=== PATIENT | female | born 1995 | race American Indian/Alaskan Native ===

== ENCOUNTER 2017-02-28 14:39 | Inpatient (IN) | payer BC ==
[2017-02-28] MEDS ORDERED: NACL 0.9% 1000 ML 1,000 ML ONE (14:54)
[2017-02-28] MEDS ORDERED: D50W (25GM) IV ONE ×2 (14:56→16:00)
[2017-02-28] MEDS ORDERED: NACL 0.9% 1000 ML 1,000 ML IV ONE (15:01)
[2017-02-28 15:19] LABS: Basophils % (Auto) 0.9 % (0.0-1.8); Eosinophils % (Auto) 0.2 % (0.0-4.3); Hematocrit 38.3 % (30.3-42.9); Hemoglobin 12.4 gm/dl (10.1-14.3); Mean Corpuscular HGB Conc 33 % (30-34); Mean Corpuscular Hemoglobin 31 pg (28-32); Mean Corpuscular Volume 96 fl (79-97); Platelet Count 287 K/mm3 (140-440); Red Blood Count 3.98 M/mm3 (3.65-5.03); Red Cell Distribution Width 12.4 % (13.2-15.2); White Blood Count 7.7 K/mm3 (4.5-11.0)
[2017-02-28 15:34] LABS: Urine Drugs of Abuse Note Disclamer
[2017-02-28 15:39] LABS: Alanine Aminotransferase 12 units/L (7-56); Albumin 4.3 g/dL (3.9-5); Albumin/Globulin Ratio 1.7 %; Alkaline Phosphatase 37 units/L (35-129); Anion Gap 25 mmol/L; BUN/Creatinine Ratio 14.28; Blood Urea Nitrogen 10 mg/dL (7-17); Calcium 8.7 mg/dL (8.4-10.2); Carbon Dioxide 20 mmol/L (22-30); Chloride 98.3 mmol/L (98-107); Glucose 315 mg/dL (65-100); Potassium 3.2 mmol/L (3.6-5.0); Sodium 140 mmol/L (137-145); Total Protein 6.9 g/dL (6.3-8.2)
[2017-02-28 15:50] LABS: Bilirubin,Urine NEG (Negative); Blood,Urine LG (Negative); Ketones,Urine 20 mg/dL (Negative); Leukocyte Esterase,Urine NEG (Negative); Mucus,Urine 1+ /HPF; Nitrite,Urine NEG (Negative); Protein,Urine <15 mg/dL mg/dL (Negative); Urobilinogen,Urine < 2.0 mg/dL (<2.0)
--- NOTE | 2017-02-28 17:01 | Emergency Department Report ---
HPI - General Chief Complaint: Hypoglycemia Time Seen by Provider: 02/28/17 16:50 - HPI HPI: Room 4 The patient is a 21-year-old female presenting with chief complaint of hypoglycemia. Patient has no known medical problems and does not take medication. Patient states today she began to feel short of breath and lightheaded so she went to an urgent care facility where an Accu-Chek revealed her glucose was 40. Patient states she again began to feel nauseous and actually vomited her glucose was rechecked and remained at 40. The patient was subsequently sent to the ED. Here in the ED her initial glucose was found to be 33. Patient was administered D50 and given a meal. Patient states she feels improved and only complains of feeling sleepy. Patient denies any previous episodes of the same. Location: [see above] Duration: One day Quality: Numbness, shortness of breath Severity: Moderate Modifying factors: [see above] Context: [see above] Mode of transportation: [not driving] ED Past Medical Hx - Past Medical History Previous Medical History?: No - Surgical History Past Surgical History?: No - Family History Family history: no significant - Social History Smoking Status: Current Every Day Smoker Substance Use Type: None (denies illicit drug use) - Medications Home Medications: Home Medications Medication Instructions Recorded Confirmed Last Taken Type No Known Home Medications [No 02/28/17 02/28/17 Unknown History Reported Home Medications] ED Review of Systems ROS: Stated complaint: LBS Other details as noted in HPI Comment: All other systems reviewed and negative Constitutional: denies: chills, fever Eyes: denies: eye pain, eye discharge, vision change ENT: denies: ear pain, throat pain Respiratory: shortness of breath Cardiovascular: as per HPI Endocrine: no symptoms reported Gastrointestinal: nausea, vomiting Genitourinary: denies: urgency, dysuria, discharge Musculoskeletal: denies: back pain, joint swelling, arthralgia Skin: denies: rash, lesions Neurological: denies: headache, weakness, paresthesias Psychiatric: denies: anxiety, depression Hematological/Lymphatic: denies: easy bleeding, easy bruising Physical Exam - Physical Exam Vital Signs: Vital Signs 02/28/17 02/28/17 14:47 15:20 Temperature 98 F Pulse Rate 77 78 Respiratory 18 18 Rate Blood Pressure 106/71 Blood Pressure 109/68 [Right] O2 Sat by Pulse 100 98 Oximetry Physical Exam: GENERAL: The patient is well-developed well-nourished female lying on stretcher not appearing to be in acute distress. [] HEENT: Normocephalic. Atraumatic. Extraocular motions are intact. Patient has moist mucous membranes. NECK: Supple. Trachea midline CHEST/LUNGS: Clear to auscultation. There is no respiratory distress noted. HEART/CARDIOVASCULAR: Regular. There is no tachycardia. There is no gallop rub or murmur. ABDOMEN: Abdomen is soft, nontender. Patient has normal bowel sounds. There is no abdominal distention. SKIN: There is no rash. There is no edema. There is no diaphoresis. NEURO: The patient is awake, alert, and oriented. The patient is cooperative. The patient has normal speech MUSCULOSKELETAL: There is no evidence of acute injury. ED Course Vital Signs 02/28/17 02/28/17 14:47 15:20 Temperature 98 F Pulse Rate 77 78 Respiratory 18 18 Rate Blood Pressure 106/71 Blood Pressure 109/68 [Right] O2 Sat by Pulse 100 98 Oximetry ED Medical Decision Making - Lab Data Result diagrams: 02/28/17 15:02 02/28/17 15:02 Laboratory Tests 02/28/17 02/28/17 02/28/17 14:47 15:02 15:02 WBC 7.7 RBC 3.98 Hgb 12.4 Hct 38.3 MCV 96 MCH 31 MCHC 33 RDW 12.4 L Plt Count 287 Lymph % (Auto) 20.4 [place] % (Auto) 3.6 Eos % (Auto) 0.2 Baso % (Auto) 0.9 Lymph # 1.6 [place] # 0.3 Eos # 0.0 Baso # 0.1 Seg Neutrophils % 74.9 H Seg Neutrophils # 5.8 Sodium 140 Potassium 3.2 L Chloride 98.3 Carbon Dioxide 20 L Anion Gap 25 BUN 10 Creatinine 0.7 Estimated GFR > 60 BUN/Creatinine Ratio 14.28 Glucose 315 H POC Glucose < 40 L Calcium 8.7 Total Bilirubin 0.60 AST 18 ALT 12 Alkaline Phosphatase 37 Troponin T < 0.010 Total Protein 6.9 Albumin 4.3 Albumin/Globulin Ratio 1.7 TSH Free T4 Urine Color Urine Turbidity Urine pH Ur Specific [place] Urine Protein Urine Glucose (UA) Urine Ketones Urine Blood Urine Nitrite Urine Bilirubin Urine Urobilinogen Ur Leukocyte Esterase Urine WBC (Auto) Urine RBC (Auto) U Epithel Cells (Auto) Urine Mucus Urine HCG, Qual Urine Opiates Screen Urine Methadone Screen Ur Barbiturates Screen Ur Phencyclidine Scrn Ur Amphetamines Screen U Benzodiazepines Scrn Urine Cocaine Screen U Marijuana (THC) Screen Drugs of Abuse Note 02/28/17 02/28/17 02/28/17 15:02 15:28 15:28 WBC RBC Hgb Hct MCV MCH MCHC RDW Plt Count Lymph % (Auto) [place] % (Auto) Eos % (Auto) Baso % (Auto) Lymph # [place] # Eos # Baso # Seg Neutrophils % Seg Neutrophils # Sodium Potassium Chloride Carbon Dioxide Anion Gap BUN Creatinine Estimated GFR BUN/Creatinine Ratio Glucose POC Glucose Calcium Total Bilirubin AST ALT Alkaline Phosphatase Troponin T Total Protein Albumin Albumin/Globulin Ratio TSH 0.641 Free T4 1.34 Urine Color Yellow Urine Turbidity Clear Urine pH 6.0 Ur Specific [place] 1.018 Urine Protein <15 mg/dl Urine Glucose (UA) >=500 Urine Ketones 20 Urine Blood Lg Urine Nitrite Neg Urine Bilirubin Neg Urine Urobilinogen < 2.0 Ur Leukocyte Esterase Neg Urine WBC (Auto) 1.0 Urine RBC (Auto) 4.0 U Epithel Cells (Auto) 2.0 Urine Mucus 1+ Urine HCG, Qual Negative Urine Opiates Screen Presumptive negative Urine Methadone Screen Presumptive negative Ur Barbiturates Screen Presumptive negative Ur Phencyclidine Scrn Presumptive negative Ur Amphetamines Screen Presumptive negative U Benzodiazepines Scrn Presumptive negative Urine Cocaine Screen Presumptive negative U Marijuana (THC) Screen Presumptive negative Drugs of Abuse Note Disclamer 02/28/17 15:49 WBC RBC Hgb Hct MCV MCH MCHC RDW Plt Count Lymph % (Auto) [place] % (Auto) Eos % (Auto) Baso % (Auto) Lymph # [place] # Eos # Baso # Seg Neutrophils % Seg Neutrophils # Sodium Potassium Chloride Carbon Dioxide Anion Gap BUN Creatinine Estimated GFR BUN/Creatinine Ratio Glucose POC Glucose 165 H Calcium Total Bilirubin AST ALT Alkaline Phosphatase Troponin T Total Protein Albumin Albumin/Globulin Ratio TSH Free T4 Urine Color Urine Turbidity Urine pH Ur Specific [place] Urine Protein Urine Glucose (UA) Urine Ketones Urine Blood Urine Nitrite Urine Bilirubin Urine Urobilinogen Ur Leukocyte Esterase Urine WBC (Auto) Urine RBC (Auto) U Epithel Cells (Auto) Urine Mucus Urine HCG, Qual Urine Opiates Screen Urine Methadone Screen Ur Barbiturates Screen Ur Phencyclidine Scrn Ur Amphetamines Screen U Benzodiazepines Scrn Urine Cocaine Screen U Marijuana (THC) Screen Drugs of Abuse Note - EKG Data -: EKG Interpreted by Me EKG shows normal: sinus rhythm Rate: normal - EKG Data When compared to previous EKG there are: previous EKG unavailable Interpretation: nonspecific ST-T wave loulou (T-wave inversions in leads 3 and aVF) - Differential Diagnosis hypoglycemia Critical care attestation.: If time is entered above; I have spent that time in minutes in the direct care of this critically ill patient, excluding procedure time. ED Disposition Clinical Impression: Hypoglycemia, Hypokalemia Disposition: OP ADMITTED IP TO THIS HOSP Is pt being admited?: Yes Does the pt Need Aspirin: No Condition: Fair Referrals: PRIMARY CARE, [Primary Care Provider] - 3-5 Days Time of Disposition: 17:01 (hospitalist paged)
[2017-02-28] MEDS ORDERED: ZOFRAN IV PRN (17:02)
[2017-02-28] MEDS ORDERED: K-DUR PO ONE (17:02)
--- NOTE | 2017-02-28 20:20 | Event Note ---
Date: 02/28/17 See H/p in reports Persistent Hypoglycemia Hypokalemia
[2017-02-28] MEDS: D5W 1,000 ML IV SCH (22:17)
[2017-03-01 08:59] VITALS: BP 103/62
--- NOTE | 2017-03-01 09:36 | Progress Note ---
Hospitalist Physical - Constitutional Vitals: Temp Pulse Resp BP Pulse Ox 99.6 F 60 16 103/62 99 03/01/17 08:40 03/01/17 08:40 03/01/17 08:40 03/01/17 08:40 03/01/17 08:40 Results - Labs CBC & Chem 7: 02/28/17 15:02 02/28/17 15:02 Labs: Laboratory Last Values WBC 7.7 K/mm3 (4.5-11.0) 02/28/17 15:02 RBC 3.98 M/mm3 (3.65-5.03) 02/28/17 15:02 Hgb 12.4 gm/dl (10.1-14.3) 02/28/17 15:02 Hct 38.3 % (30.3-42.9) 02/28/17 15:02 MCV 96 fl (79-97) 02/28/17 15:02 MCH 31 pg (28-32) 02/28/17 15:02 MCHC 33 % (30-34) 02/28/17 15:02 RDW 12.4 % (13.2-15.2) L 02/28/17 15:02 Plt Count 287 K/mm3 (140-440) 02/28/17 15:02 Lymph % (Auto) 20.4 % (13.4-35.0) 02/28/17 15:02 [place] % (Auto) 3.6 % (0.0-7.3) 02/28/17 15:02 Eos % (Auto) 0.2 % (0.0-4.3) 02/28/17 15:02 Baso % (Auto) 0.9 % (0.0-1.8) 02/28/17 15:02 Lymph # 1.6 K/mm3 (1.2-5.4) 02/28/17 15:02 [place] # 0.3 K/mm3 (0.0-0.8) 02/28/17 15:02 Eos # 0.0 K/mm3 (0.0-0.4) 02/28/17 15:02 Baso # 0.1 K/mm3 (0.0-0.1) 02/28/17 15:02 Seg Neutrophils % 74.9 % (40.0-70.0) H 02/28/17 15:02 Seg Neutrophils # 5.8 K/mm3 (1.8-7.7) 02/28/17 15:02 Sodium 140 mmol/L (137-145) 02/28/17 15:02 Potassium 3.2 mmol/L (3.6-5.0) L 02/28/17 15:02 Chloride 98.3 mmol/L (98-107) 02/28/17 15:02 Carbon Dioxide 20 mmol/L (22-30) L 02/28/17 15:02 Anion Gap 25 mmol/L 02/28/17 15:02 BUN 10 mg/dL (7-17) 02/28/17 15:02 Creatinine 0.7 mg/dL (0.7-1.2) 02/28/17 15:02 Estimated GFR > 60 ml/min 02/28/17 15:02 BUN/Creatinine Ratio 14.28 % 02/28/17 15:02 Glucose 315 mg/dL (65-100) H 02/28/17 15:02 POC Glucose 74 (70-105) 03/01/17 06:00 Hemoglobin A1c 5.3 % (4-6) 03/01/17 05:59 Calcium 8.7 mg/dL (8.4-10.2) 02/28/17 15:02 Total Bilirubin 0.60 mg/dL (0.1-1.2) 02/28/17 15:02 AST 18 units/L (5-40) 02/28/17 15:02 ALT 12 units/L (7-56) 02/28/17 15:02 Alkaline Phosphatase 37 units/L (35-129) 02/28/17 15:02 Troponin T < 0.010 ng/mL (0.00-0.029) 02/28/17 15:02 Total Protein 6.9 g/dL (6.3-8.2) 02/28/17 15:02 Albumin 4.3 g/dL (3.9-5) 02/28/17 15:02 Albumin/Globulin Ratio 1.7 % 02/28/17 15:02 TSH 0.641 mlU/mL (0.270-4.200) 02/28/17 15:02 Free T4 1.34 ng/dL (0.76-1.46) 02/28/17 15:02 Urine Color Yellow (Yellow) 02/28/17 15:28 Urine Turbidity Clear (Clear) 02/28/17 15:28 Urine pH 6.0 (5.0-7.0) 02/28/17 15: Ur Specific [place] 1.018 (1.003-1.030) 02/28/17 15:28 Urine Protein <15 mg/dl mg/dL (Negative) 02/28/17 15:28 Urine Glucose (UA) >=500 mg/dL (Negative) 02/28/17 15:28 Urine Ketones 20 mg/dL (Negative) 02/28/17 15:28 Urine Blood Lg (Negative) 02/28/17 15: Urine Nitrite Neg (Negative) 02/28/17 15: Urine Bilirubin Neg (Negative) 02/28/17 15: Urine Urobilinogen < 2.0 mg/dL (<2.0) 02/28/17 15:28 Ur Leukocyte Esterase Neg (Negative) 02/28/17 15:28 Urine WBC (Auto) 1.0 /HPF (0.0-6.0) 02/28/17 15:28 Urine RBC (Auto) 4.0 /HPF (0.0-6.0) 02/28/17 15:28 U Epithel Cells (Auto) 2.0 /HPF (0-13.0) 02/28/17 15:28 Urine Mucus 1+ /HPF 02/28/17 15:28 Urine HCG, Qual Negative (Negative) 02/28/17 15:28 Urine Opiates Screen Presumptive negative 02/28/17 15:28 Urine Methadone Screen Presumptive negative 02/28/17 15:28 Ur Barbiturates Screen Presumptive negative 02/28/17 15:28 Ur Phencyclidine Scrn Presumptive negative 02/28/17 15:28 Ur Amphetamines Screen Presumptive negative 02/28/17 15:28 U Benzodiazepines Scrn Presumptive negative 02/28/17 15:28 Urine Cocaine Screen Presumptive negative 02/28/17 15:28 U Marijuana (THC) Screen Presumptive negative 02/28/17 15:28 Drugs of Abuse Note Disclamer 02/28/17 15:28
[2017-03-01] MEDS: D5W 1,000 ML IV SCH (10:49)
--- NOTE | 2017-03-01 11:35 | History and Physical Report ---
CHIEF COMPLAINT: Low sugars. HISTORY OF PRESENT ILLNESS: A 21-year-old female, presenting with chief complaint of low blood sugars. No known medical problems and does not take any medications. She did not eat for a long period of time. She was lightheaded and went to urgent care facility with Accu-Chek noted sugar of 40. In the ER, the patient's blood glucose was 33. The patient was given D50 and a meal feels improved, but still complains of feeling tired and sleepy. Denies any previous episodes. PAST MEDICAL HISTORY: None. PAST SURGICAL HISTORY: None. FAMILY HISTORY: No significant family history. SOCIAL HISTORY: Smokes about half a pack a day. Works in a fast food restaurant. Denies any illicit drug use. REVIEW OF SYSTEMS: Other than feeling lightheaded and weak. Review of systems is essentially negative. A 14-point review of systems was done. PHYSICAL EXAMINATION: GENERAL: Young female, cooperative during examination. VITAL SIGNS: Blood pressure is 106/71, temperature is 98, pulse is 77, respiratory rate is 18, sats are 100%. HEENT: Unremarkable. Pupils equal and reactive. NECK: Supple, no lymphadenopathy, no thyromegaly. LUNGS: Clear to auscultation and percussion. Good air entry. CARDIOVASCULAR: S1, S2 heard. No gallop, no murmur, no rub. Apical impulse in left fifth intercostal space in midclavicular line. ABDOMEN: Soft and benign. No hepatosplenomegaly. No guarding, no rigidity. Hernial orifices are normal. EXTREMITIES: Good pedal pulses. No pedal edema. CENTRAL NERVOUS SYSTEM: Alert and oriented x 4, nonfocal exam. LABORATORY DATA: Potassium was 3.2, glucose was 315. Otherwise, labs are fine. Urinalysis showed glucose of 500, but this was after administration of D50W ASSESSMENT AND PLAN: 1. Hypoglycemia secondary to fasting. The patient counseled about eating on regular times. There is no precipitating cause found. The patient is not on any antibiotics, has all sulfa drugs, etc. The patient is on a regular basis. Admitting for observation for 23 hours. D5W in the meantime. 2. Hypokalemia, potassium supplemented. 3. Deep venous thrombosis prophylaxis, Lovenox 40 mg subcutaneous daily. [facility]# [id number] MANJEET/NAINA
--- NOTE | 2017-03-01 12:28 | Discharge Summary ---
Providers - Providers Date of Admission: 02/28/17 18:24 Date of discharge: 03/01/17 Attending physician: ELTON CLEMENTE Primary care physician: [employer] Hospitalization Reason for admission: hypoglycemia Condition: Fair Hospital course: 19-year-old female patient with no significant past medical history was admitted through emergency room with not feeling well and hypoglycemia Patient reports that she has not been eating well today status and on the day of this episode patient did not eat any food Patient assures for closely monitor, encourage to eat regularly, received D50 and D5 W Patient's blood sugars closely monitor significantly improved Patient did not have any symptoms of dizziness weakness or fatigue Ambulatory and tolerating oral nutrition Today she is comfortable in bed vital signs are stable No new complaints [id number] evaluation physical examination done by me prior to discharge is unremarkable as detailed below Patient strongly encouraged to eat high sugar content foods, have candy or cookies handy, drink plenty of fruit juices And follow with primary care physician for further evaluation of hypoglycemic episode Patient verbalized understanding Hemodynamically and clinically stable for discharge and does not need any further acute inpatient care at this time Disposition: DISCHARGED TO HOME OR SELFCARE Time spent for discharge: 31min Core Measure Documentation - Palliative Care Palliative Care/ Comfort Measures: Not Applicable - Core Measures Any of the following diagnoses?: none Exam - Constitutional Vitals: Temp Pulse Resp BP Pulse Ox 99.6 F 60 16 103/62 99 03/01/17 08:40 03/01/17 08:40 03/01/17 08:40 03/01/17 08:40 03/01/17 08:40 General appearance: Present: no acute distress, well-nourished - EENT Eyes: Present: PERRL, EOM intact - Neck Neck: Present: supple, normal ROM - Respiratory Respiratory effort: normal Respiratory: negative: diminished, rales, rhonchi - Cardiovascular Rhythm: regular Heart Sounds: Present: S1 & S2 - Extremities Extremities: no ischemia, pulses intact, pulses symmetrical Peripheral Pulses: within normal limits - Abdominal General gastrointestinal: Present: soft, non-tender, non-distended, normal bowel sounds - Integumentary Integumentary: Present: clear, warm - Musculoskeletal Musculoskeletal: strength equal bilaterally - Psychiatric Psychiatric: appropriate mood/affect, cooperative - Neurologic Neurologic: CNII-XII intact, moves all extremities Plan Diet: regular, other (advised to eat foods with high sugar content ) Additional Instructions: Advised to take foods high in sugar, like candy and cookies and fruit juices. Follow with primary care physician for further evaluation of hypoglycemia. Follow-up primary care physician in 1-2 days Follow up with: PRIMARY CARE, [Primary Care Provider] - 3-5 Days
== END 2017-03-01 14:20 | disposition home or self-care (01) | DRG 641 ==
LOC: ED 14:39 → 3A 18:24
PROVIDERS: ADMIT Internal Medicine; ATTEND Internal Medicine
DX: E16.2 Hypoglycemia, unspecified (principal); F17.200 Nicotine dependence, unspecified, uncomplicated; E87.6 Hypokalemia; Z71.3 Dietary counseling and surveillance
CPT/HCPCS: 36415; 80053; 80307; 81001; 81025; 82962; 83036; 84439; 84443; 84484; 85025; 93005; 93010; 96374; J7030; J7070

== ENCOUNTER 2017-06-23 19:56 | Emergency (ER) | payer BC ==
[2017-06-23 20:34] LABS: Basophils % (Auto) 0.1 % (0.0-1.8); Eosinophils % (Auto) 2.4 % (0.0-4.3); Hemoglobin 12.5 gm/dl (10.1-14.3); Mean Corpuscular HGB Conc 33 % (30-34); Mean Corpuscular Hemoglobin 31 pg (28-32); Mean Corpuscular Volume 95 fl (79-97); Platelet Count 258 K/mm3 (140-440); Red Blood Count 3.99 M/mm3 (3.65-5.03)
[2017-06-23 20:54] LABS: Anion Gap 19 mmol/L; Blood Urea Nitrogen 8 mg/dL (7-17); Calcium 8.8 mg/dL (8.4-10.2); Carbon Dioxide 24 mmol/L (22-30); Chloride 101.9 mmol/L (98-107); Glucose 95 mg/dL (65-100); Potassium 3.6 mmol/L (3.6-5.0); Sodium 141 mmol/L (137-145)
[2017-06-23 21:09] LABS: Bilirubin,Urine NEG (Negative); Blood,Urine NEG (Negative); Ketones,Urine NEG (Negative); Leukocyte Esterase,Urine TR (Negative); Mucus,Urine FEW /HPF; Nitrite,Urine NEG (Negative); Protein,Urine <15 mg/dL mg/dL (Negative); Urobilinogen,Urine < 2.0 mg/dL (<2.0)
--- NOTE | 2017-06-24 08:35 | XRay Report ---
CHEST TWO VIEWS: 06/23/17 19:56:00 CLINICAL: Shortness of breath. COMPARISON: None FINDINGS: Normal heart and pulmonary vasculature. Patchy airspace disease of the left lung apex. Lungs are otherwise clear. The bones and soft tissues are normal. IMPRESSION: Left upper lobe pneumonia.Recommend followup chest x-rays to resolution.
[2017-06-24 10:07] VITALS: BP 128/79
[2017-06-24 10:27] LABS: Hematocrit 37.6 % (30.3-42.9); Hemoglobin 12.6 gm/dl (10.1-14.3); Mean Corpuscular HGB Conc 34 % (30-34); Mean Corpuscular Hemoglobin 32 pg (28-32); Mean Corpuscular Volume 95 fl (79-97); Platelet Count 253 K/mm3 (140-440); Red Blood Count 3.96 M/mm3 (3.65-5.03); Red Cell Distribution Width 12.6 % (13.2-15.2); White Blood Count 3.5 K/mm3 (4.5-11.0)
--- NOTE | 2017-06-24 11:10 | XRay Report ---
AP AND LATERAL SOFT TISSUES OF THE NECK: History: Sore throat, pain. The contour of the upper airway appears within normal limits. The epiglottis is not enlarged. No prevertebral soft tissue swelling is apparent. No mass density or foreign body is evident. IMPRESSION: Normal study.
--- NOTE | 2017-06-24 18:23 | Emergency Department Report ---
Entered by LUZ MEDINA, acting as scribe for ANKUSH PATRICIO NP. ED Chest Pain HPI - General Chief Complaint: Chest Pain Stated Complaint: THROAT/CHEST PAIN Time Seen by Provider: 06/24/17 10:04 Source: patient Mode of arrival: Ambulatory Limitations: No Limitations - History of Present Illness Initial Comments: This is a 21 y/o female, nontoxic, well nourished in appearance, no acute signs of distress with no significant PMHx presents with left chest pain with cough that began 1 week ago. Rates pain a 7/10 in severity, which she describes as tight and sharp in quality. Aggravated with cough and alleviated with nothing. Reports associated scratchy sore throat, but she denies SOB, nausea, vomiting, rhinorrhea, congestion, lower extremity pain/swelling, hemoptysis, calf pain, calf tenderness, fever, chills, COWAN or dizziness, numbness, and tingling. Patient states she went to an urgent care for chest pain 1 week ago in [place], where she was for work, and was told everything was normal after EKG and labs obtained for her heart. Reports they did an EKG, but denies they did a chest x- ray. NKDA. GRESHAM Complaint: chest pain (with cough) Onset/Timin -: week(s) Onset: other (cough) Pain Location: left chest Pain Radiation: none Severity: moderate Severity scale (0 -10): 7 Quality: sharp, other (tight) Consistency: intermittent Improves With: nothing Worsens With: other (cough) re: other (sore throat). denies: nausea, vomting, diaphoresis, dyspnea, sense of impending doom Other Symptoms: denies: cough, fever, syncope, rash, acid taste in mouth, leg swelling, palpitations, burping Treatments Prior to Arrival: none Aspirin use within the Past 7 Days: (0) No - Related Data On Oral Contraceptives: No Previous Rx's Medication Instructions Recorded Last Taken Type Azithromycin [Zithromax Z-SAMMI] 250 mg PO DAILY #6 tablet 06/24/17 Unknown Rx Allergies Allergy/AdvReac Type Severity Reaction Status Date / Time No Known Allergies Allergy Unverified 02/28/17 14:50 Heart Score - HEART Score History: Slightly suspicious EKG: Normal Age: < 45 Risk factors: No known risk factors Troponin: < normal limit HEART Score: 0 ED Review of Systems Comment: All other systems reviewed and negative Constitutional: denies: chills, fever Eyes: denies: eye pain, eye discharge, vision change ENT: throat pain. denies: ear pain Respiratory: cough. denies: orthopnea, shortness of breath, SOB with exertion, SOB at rest, stridor, wheezing Cardiovascular: chest pain. denies: palpitations, dyspnea on exertion, orthopnea, edema, syncope, paroxysmal nocturnal dyspnea Endocrine: no symptoms reported Gastrointestinal: denies: abdominal pain, nausea, vomiting, diarrhea Genitourinary: denies: urgency, dysuria, discharge Musculoskeletal: denies: back pain, joint swelling, arthralgia Skin: denies: rash, lesions Neurological: denies: headache, weakness, numbness, paresthesias, confusion, abnormal gait, vertigo Psychiatric: denies: anxiety, depression Hematological/Lymphatic: denies: easy bleeding, easy bruising ED Past Medical Hx - Past Medical History Previous Medical History?: No Hx Congestive Heart Failure: No Hx Diabetes: No Hx Asthma: No Hx COPD: No - Surgical History Past Surgical History?: No - Family History Family history: no significant - Social History Smoking Status: Never Smoker Substance Use Type: None - Medications Home Medications: Home Medications Medication Instructions Recorded Confirmed Last Taken Type Azithromycin [Zithromax Z-SAMMI] 250 mg PO DAILY #6 tablet 06/24/17 Unknown Rx ED Physical Exam - General Limitations: No Limitations General appearance: alert, in no apparent distress - Head Head exam: Present: atraumatic, normocephalic - Eye Eye exam: Present: normal appearance, PERRL, EOMI. Absent: scleral icterus, conjunctival injection, nystagmus, periorbital swelling, periorbital tenderness Pupils: Present: normal accommodation - ENT ENT exam: Present: mucous membranes moist, TM's normal bilaterally, normal external ear exam. Absent: normal exam, normal orophraynx - Expanded ENT Exam Expanded Ear exam: Present: normal external inspection Mouth exam: Present: normal external inspection, tongue normal. Absent: drooling, trismus, muffled voice, tongue elevation, laceration Teeth exam: Present: normal inspection Throat exam: Positive: tonsillar erythema. Negative: normal inspection, tonsillomegaly, tonsillar exudate, R peritonsillar mass, L peritonsillar mass - Neck Neck exam: Present: normal inspection, full ROM. Absent: tenderness, meningismus, lymphadenopathy, thyromegaly - Respiratory Respiratory exam: Present: normal lung sounds bilaterally. Absent: respiratory distress, wheezes, rales, rhonchi, stridor, chest wall tenderness, accessory muscle use, decreased breath sounds, prolonged expiratory - Cardiovascular Cardiovascular Exam: Present: regular rate, normal rhythm, normal heart sounds. Absent: bradycardia, tachycardia, irregular rhythm, systolic murmur, diastolic murmur, rubs, gallop - GI/Abdominal GI/Abdominal exam: Present: soft, normal bowel sounds. Absent: distended, tenderness, guarding, rebound, rigid - Rectal Rectal exam: Present: deferred - Extremities Exam Extremities exam: Present: normal inspection, full ROM, normal capillary refill. Absent: tenderness, pedal edema, joint swelling, calf tenderness - Back Exam Back exam: Present: normal inspection, full ROM. Absent: tenderness, CVA tenderness (R), CVA tenderness (L), muscle spasm, paraspinal tenderness, vertebral tenderness, rash noted - Neurological Exam Neurological exam: Present: alert, oriented X3, CN II-XII intact, normal gait, reflexes normal. Absent: motor sensory deficit - Psychiatric Psychiatric exam: Present: normal affect, normal mood - Skin Skin exam: Present: warm, dry, intact. Absent: rash - Other Other exam information: Negative Homans test. ED Course Vital Signs 06/23/17 06/24/17 06/24/17 20:09 04:52 10:06 Temperature 98.7 F 97.7 F 97.8 F Pulse Rate 76 57 L 60 Respiratory 18 12 16 Rate Blood Pressure 111/72 115/68 Blood Pressure 128/79 [Left] O2 Sat by Pulse 100 100 99 Oximetry - Reevaluation(s) Reevaluation #1: 06/24/17 11:22 Patient is speaking in full sentences with no signs of distress noted. EVAN score - Evan Score Age > 65: (0) No Aspirin use within the Past 7 Days: (0) No 3 or more CAD Risk Factors: (0) No 2 or more Angina events in past 24 hrs: (0) No Known CAD with more than 50% Stenosis: (0) No Elevated Cardiac Markers: (0) No ST Deviation Greater than 0.5mm: (0) No EVAN Score: 0 ED Medical Decision Making - Lab Data Result diagrams: 06/24/17 10:11 06/23/17 20:23 - EKG Data Interpretation: normal EKG 06/24/17 11:22 Normal sinus rhythm. Vent rate; 62 bpm. TX interval 120. QRS duration 82. QT /QTc 394/399. PRT axis 61/58/31. No ST abnormalities. - Radiology Data Radiology results: report reviewed interpreted by me: Dr. George and Dr. Gutierrez X-ray of chest indicates patchy airspace disease of the left lung apex. Lungs are otherwise clear. Impression; left upper lobe pneumonia. X-ray of soft tissue neck; normal exam with no abnormalities. - Medical Decision Making 21-year-old female that presents with left-sided pneumonia. Patient was notified of x-ray findings with no further questioned by the patient. CBC, BMP , UA, EKG, troponin 3, within normal limits. CBC White blood cell has been consulted with Dr. Ross with no concerns. Patient is stable. Patient will be treated with azithromycin and discharged and was instructed to follow-up with a primary care doctor in 24 hours or if symptoms worsen or continue return to emergency room as soon as possible. At time time of discharge, the patient does not seem toxic or ill in appearance. No acute signs of distress noted. Patient agrees to discharge treatment plan of care. No further questions noted by the patient. Wells criteria -0 points. ED Disposition Clinical Impression: Pneumonia Disposition: DC-01 TO HOME OR SELFCARE Is pt being admited?: No Does the pt Need Aspirin: No Condition: Stable Instructions: Azithromycin (By mouth), Community-acquired Pneumonia (ED) Additional Instructions: Follow-up with a primary care doctor in 24 hours or if symptoms worsen or continue return to emergency room as soon as possible. Prescriptions: Azithromycin [Zithromax Z-SAMMI] 250 mg PO DAILY #6 tablet Referrals: [facility] [Outside] - 3-5 Days [facility] [Outside] - 3-5 Days PRIMARY CARE, [Primary Care Provider] - 24 Hours YUAN JAVIER MD [Staff Physician] - 24 Hours Forms: Work/School Release Form(ED) This documentation as recorded by the CAROL brown JASMINE,accurately reflects the service I personally performed and the decisions made by ,ANKUSH PATRICIO, RECEPTION INTERVIEWER.
== END 2017-06-24 11:56 | disposition home or self-care (01) ==
LOC: ED 19:56
DX: J18.9 Pneumonia, unspecified organism (principal)
CPT/HCPCS: 36415; 70360; 71020; 80048; 81001; 81025; 84484; 84703; 85025; 85027; 93005; 93010